=== PATIENT | female | born 1970 | race Caucasian/White ===

== ENCOUNTER 2018-07-05 15:35 | Emergency (ER) | payer MEDICAID ==
[~2018-07-05] VITALS: Ht 162.6 cm; Wt 79.5 kg
[2018-07-05 16:02] VITALS: BP 125/85
[2018-07-05 17:36] LABS: BASOPHILS # (AUTO) 0.2 X10'3 (0-0.2); BASOPHILS % (AUTO) 1.8 % (0-1); EOSINOPHILS # (AUTO) 0.1 X10'3 (0-0.9); EOSINOPHILS % (AUTO) 1.3 % (0-6); HEMATOCRIT 42.7 % (35.0-45.0); HEMOGLOBIN 14.4 g/dl (12.0-16.0); LYMPHOCYTES # (AUTO) 2.5 X10'3 (1.1-4.8); LYMPHOCYTES % (AUTO) 23.6 % (21-51); MEAN CORPUSCULAR HEMOGLOBIN 30.4 PG (27.0-31.0); MEAN CORPUSCULAR HGB CONC 33.6 % (33.0-36.5); MEAN CORPUSCULAR VOLUME 90.4 FL (78-98); MEAN PLATELET VOLUME 8.1 FL (7.4-10.4); MONOCYTES # (AUTO) 0.6 X10'3 (0-0.9); MONOCYTES % (AUTO) 5.7 % (2-12); NEUTROPHILS # (AUTO) 7.1 X10'3 (1.8-7.7); NEUTROPHILS % (AUTO) 67.6 % (42-75); PLATELET COUNT 329 X10'3 (140-440); RED BLOOD COUNT 4.72 X10'6 (4.20-5.60); RED CELL DISTRIBUTION WIDTH 14.4 % (11.5-14.5); WHITE BLOOD COUNT 10.5 X10'3 (4.5-11.0)
[2018-07-05 17:52] LABS: ALANINE AMINOTRANSFERASE 23 U/L (12-78); ALBUMIN 3.2 G/DL (3.4-5.0); ALBUMIN/GLOBULIN RATIO 0.8 (1.1-1.5); ALKALINE PHOSPHATASE 81 IU/L (46-116); ANION GAP 10 (8-16); ASPARTATE AMINO TRANSFERASE 15 U/L (10-37); BILIRUBIN,TOTAL 0.4 MG/DL (0.1-1.0); BLOOD UREA NITROGEN 10 MG/DL (7-18); BUN/CREATININE RATIO 12.7 (6.6-38.0); CALCIUM 9.2 MG/DL (8.5-10.1); CHLORIDE 103 MMOL/L (99-107); CREATININE 0.79 MG/DL (0.40-0.90); GLUCOSE 99 MG/DL (70-104); POTASSIUM 3.8 MMOL/L (3.5-5.1); SODIUM 139 MMOL/L (135-145); TOTAL CARBON DIOXIDE 26.4 MMOL/L (24-32); TOTAL PROTEIN 7.1 G/DL (6.4-8.2); eGFR 78 ML/MIN
[2018-07-05] MEDS ORDERED: iohexol 300mg/ml 100ml inj. ONE (18:10)
[2018-07-05] MEDS ORDERED: CLIN300C85 PO (18:46)
== END 2018-07-05 19:11 | disposition home or self-care (01) ==
LOC: ER 15:35
DX: L02.211 Cutaneous abscess of abdominal wall (principal); L03.311 Cellulitis of abdominal wall; F17.200 Nicotine dependence, unspecified, uncomplicated; Z98.890 Other specified postprocedural states; Z79.2 Long term (current) use of antibiotics
CPT/HCPCS: 36415; 74177; 80053; 85025; 99285; Q9967; 99284

== ENCOUNTER 2018-07-27 09:14 | Outpatient (CLI) | payer MEDICAID ==
[~2018-07-27 09:14] MED LIST: CLIN300C85 PO
[2018-07-27] MEDS ORDERED: PALI117D IM (09:52)
[2018-07-27] MEDS ORDERED: GABA-532 PO (09:52)
[2018-07-27] MEDS ORDERED: LEVO88TA2 PO (09:53)
[2018-07-27] MEDS ORDERED: CHOL10002 PO (09:54)
== END 2018-07-27 10:00 | disposition home or self-care (01) ==
LOC: WOUND CARE 09:14 → EDSTATUS 09:30 → WOUND CARE 10:00
PROVIDERS: ATTEND Surgery
DX: L98.492 Non-pressure chronic ulcer of skin of other sites with fat layer exposed (principal); L73.9 Follicular disorder, unspecified; Z79.2 Long term (current) use of antibiotics; Z87.891 Personal history of nicotine dependence
CPT/HCPCS: 99215; A6021

== ENCOUNTER 2018-08-03 09:25 | Outpatient (CLI) | payer MEDICAID ==
[~2018-08-03 09:25] MED LIST changes: +CHOL10002 PO; +GABA-532 PO; +LEVO88TA2 PO; +PALI117D IM
== END 2018-08-03 10:39 | disposition home or self-care (01) ==
LOC: WOUND CARE 09:25 → EDSTATUS 09:30 → WOUND CARE 10:39
PROVIDERS: ATTEND Surgery
DX: L98.492 Non-pressure chronic ulcer of skin of other sites with fat layer exposed (principal); L73.9 Follicular disorder, unspecified; Z79.2 Long term (current) use of antibiotics; Z87.891 Personal history of nicotine dependence
CPT/HCPCS: 99214